=== PATIENT | female | born 1955 | race Caucasian/White ===

== ENCOUNTER 2020-05-29 08:25 | Emergency (ER) | payer OTHER ==
[2020-05-29] MEDS ORDERED: Acetaminophen 325 MG Tab PO ONE (08:45)
--- NOTE | 2020-05-29 08:47 | EDM.PDOC ---
ED HPI GENERAL MEDICAL PROBLEM - General Chief Complaint: Upper Extremity Injury/Pain Stated Complaint: RT WRIST PAIN Time Seen by Provider: 05/29/20 08:32 - History of Present Illness INITIAL COMMENTS - FREE TEXT/NARRATIVE: 65-year-old female presenting with right wrist pain that is been gradually worsening since January 2020. 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 She has been told it was arthritis she was told it could be carpal tunnel as well she has been wearing a wrist brace. She has been doing 2 Aleve twice daily for the symptoms with minimal relief she was referred to orthopedic surgery and was supposed to see them at the end of April but the provider had to cancel those appointments and she has been unable to reschedule at this point. Patient presents today because the pain is severe she is unable to use the right hand. She was trying to lift boxes at work and the pain brought her to her knees and so she presents here. Any motion tends to worsen it however she does experience some minor relief with gentle wrist extension. No fevers no chills no swelling that she is noted. 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 Psychiatric History: Reports: None Endocrine/Metabolic History: Reports: Hypothyroidism Other Endocrine/Metabolic History: Hypothyroidism Other Oncologic History: Cervical Conization Other Dermatologic History: Psoriasis - Infectious Disease History Infectious Disease History: Reports: None - Past Surgical History HEENT Surgical History: Reports: None Other GI Surgeries/Procedures: hx: polypectomy with last colonoscopy, "Mother had Colon cancer" Other Female Surgeries/Procedures: Cervical Conization Social & Family History - Family History Family Medical History: Noncontributory Review of Systems - Review of Systems Review Of Systems: See Below Constitutional: Reports: No Symptoms Respiratory: Reports: No Symptoms Cardiovascular: Reports: No Symptoms GI/Abdominal: Reports: No Symptoms Musculoskeletal: Reports: Other (Per HPI) ED EXAM, GENERAL - Physical Exam Exam: See Below Free Text/Narrative:: General Appearance: No acute distress, appears comfortable Skin: No rash HEENT: Normocephalic/atraumatic, sclera anicteric, mucous membranes moist Neck: Normal range of motion Musculoskeletal: 2+ right radial pulse there is generalized wrist tenderness that is most significant over the scaphoid and the hook of the hamate patient able to range digits but limited by pain unable to tolerate any significant range of motion of the wrist the joint is not swollen there is no clinical joint effusion there is no overlying erythema Psychiatric: Appropriate, cooperative Course - Vital Signs Last Recorded V/S: Last Vital Signs Temp 97.7 F 05/29/20 08:32 Pulse 81 05/29/20 08:32 Resp 16 05/29/20 08:32 BP 133/75 05/29/20 08:32 Pulse Ox 99 05/29/20 08:32 - Orders/Labs/Meds Meds: Medications Discontinued Medications Generic Name Dose Route Start Last Admin Trade Name Clemente PRN Reason Stop Dose Admin Acetaminophen 650 mg 05/29/20 08:45 05/29/20 09:06 Tylenol PO 05/29/20 08:46 650 mg NOW ONE Administration Departure - Departure Time of Disposition: 10:06 Disposition: Home, Self-Care 01 Condition: Good Clinical Impression: Right wrist pain - Discharge Information *PRESCRIPTION DRUG MONITORING PROGRAM REVIEWED*: Not Applicable *COPY OF PRESCRIPTION DRUG MONITORING REPORT IN PATIENT ESTHER: Not Applicable Instructions: Wrist Pain, Adult Referrals: Fabien Levine MD [Primary Care Provider] - Forms: ED Department Discharge, ED Return to Work/School Form Additional Instructions: [facility] [address], [address] [place] [address] For the next 5 days stop taking the Aleve. Instead take 600 mg (3 200 mg ofnh-cax-kepdpsn ibuprofen tablets) every 8 hours with food. Combine this with 2 extra strength Tylenol tablets 3 times a day for a total of 1 g of Tylenol 3 times daily. Do not take any additional Tylenol on top of this. Try to rest for the next 3 days and be sure to follow-up with the orthopedic surgeon and your primary care doctor. The following information is given to patients seen in the emergency department who are being discharged to home. This information is to outline your options for follow-up care. We provide all patients seen in our emergency department with a follow-up referral. The need for follow-up, as well as the timing and circumstances, are variable depending upon the specifics of your emergency department visit. If you don't have a primary care physician on staff, we will provide you with a referral. We always advise you to contact your personal physician following an emergency department visit to inform them of the circumstance of the visit and for follow-up with them and/or the need for any referrals to a consulting specialist. The emergency department will also refer you to a specialist when appropriate. This referral assures that you have the opportunity for follow-up care with a specialist. All of these measure are taken in an effort to provide you with optimal care, which includes your follow-up. Under all circumstances we always encourage you to contact your private physician who remains a resource for coordinating your care. When calling for follow-up care, please make the office aware that this follow-up is from your recent emergency room visit. If for any reason you are refused follow-up, please contact the [facility] Emergency Department at and asked to speak to the emergency department charge nurse. Sepsis Event Note (ED) - Evaluation Sepsis Screening Result: No Definite Risk - Focused Exam Vital Signs: Vital Signs Temp Pulse Resp BP Pulse Ox 05/29/20 08:32 97.7 F 81 16 133/75 99 - Assessment/Plan Assessment:: 65-year-old female presenting with gradually worsening of severe right wrist pain. Extremity is neurovascularly intact there is no swelling or erythema that would suggest gout there is no sign of recent trauma no report of recent trauma but x-ray ordered to exclude initially missed fracture such as scaphoid fracture. No findings of acute arterial occlusion. Severe arthritis is a consideration carpal tunnel is a consideration. The soft tissue injury and tendinitis is a consideration but the duration of symptoms would be atypical for this. Patient has an allergy to codeine and wishes to avoid all narcotics which is reasonable we will add Tylenol as the patient is already taken 2 Aleve today. Patient will need orthopedic surgery follow-up. Patient's x-ray is negative. We will switch her pain control to a combination of ibuprofen and Tylenol patient provided with orthopedic surgery referral as well as a note for work for the next 3 days.
--- NOTE | 2020-05-29 09:58 | CR ---
INDICATION: Severe pain right wrist for the last few months; most tender over the scaphoid and the hamate bone. COMPARISON: Three view study right wrist February 13, 2008. TECHNIQUE: Three views study right wrist. FINDINGS: No evidence of acute fracture or dislocation. Evidence of osteoarthritis involving the articulation between the scaphoid and the trapezium as well as trapezium the 1st metacarpal. Osteoarthritis involving the proximal interphalangeal articulation of the right 5th finger. Impression : 1. Osteoarthritis as described above. 2. No acute fracture or dislocation. Dictated by Patricia Del Angel MD @ May 29 2020 9:52AM Signed by Dr. Patricia Del Angel @ May 29 2020 9:56AM
[2020-05-29 10:16] VITALS: BP 133/67; PULSE 80
== END 2020-05-29 10:16 | disposition home or self-care (01) ==
LOC: MW.ED 08:25
DX: M25.531 Pain in right wrist (principal); E03.9 Hypothyroidism, unspecified; Z88.5 Allergy status to narcotic agent; Z79.899 Other long term (current) drug therapy
CPT/HCPCS: 73110; 99283; A9270; 99282

== ENCOUNTER 2020-10-01 17:08 | Emergency (ER) | payer OTHER ==
[2020-10-01 17:19] VITALS: BP 148/94; PULSE 103
[2020-10-01] MEDS ORDERED: Lidocaine 1% with EPINEPHrine 1:100,000 10 ML MDV INJECT ONE (17:25)
[2020-10-01] MEDS ORDERED: Diphtheria,Pertussis(Acell),Tetanus Vaccine 0.5 ML Syringe IM ONE (17:26)
[2020-10-01] MEDS ORDERED: Lidocaine 1% with EPINEPHrine 1:100,000 20 ML MDV ONE (17:30)
[2020-10-01] MEDS ORDERED: Lidocaine 1% with EPINEPHrine 1:100,000 20 ML MDV INJECT ONE (17:33)
--- NOTE | 2020-10-01 17:51 | EDM.PDOC ---
ED HPI GENERAL MEDICAL PROBLEM - General Chief Complaint: Laceration Stated Complaint: CUT TO RIGHT WRIST Time Seen by Provider: 10/01/20 17:10 - History of Present Illness INITIAL COMMENTS - FREE TEXT/NARRATIVE: CHIEF COMPLAINT(S): Right wrist laceration HISTORY OF PRESENT ILLNESS: This is a 65-year-old woman with a past medical history of recent right wrist surgery who comes to the emergency department with a chief complaint of right wrist laceration. The patient states that she was preparing some food this evening when she reached up above the counter to get some dressing bowls she states that the ball fell broke and cut her wrist. She denies any suicidal ideation or suicide attempt. She states that there was some bleeding. She states that she placed a towel over it and came to the emergency department. She denies any numbness, tingling, weakness. She states that she can move her right hand. She does not know when her last tetanus shot was. She denies any other injuries. REVIEW OF SYSTEMS: CV: Positive for mild bleeding Skin:Positive for laceration to right wrist MSK: Denies joint pain, finger pain, wrist pain Neurological: Denies blurred vision numbness, tingling, weakness PAST MEDICAL HISTORY: As per history of present illness and as reviewed below otherwise noncontributory. SURGICAL HISTORY: As per history of present illness and as reviewed below otherwise noncontributory. SOCIAL HISTORY: As per history of present illness and as reviewed below otherwise noncontributory. FAMILY HISTORY: As per history of present illness and as reviewed below otherwise noncontributory. EXAMINATION OF ORGAN SYSTEMS/BODY AREAS: Constitutional: Blood pressure is 148/94, heart rate 103, respiratory rate 16 with an oxygen saturation 97% on room air. Temperature 36.3 General: Overall well-appearing middle-aged woman who is in no acute distress. Psychiatric: Appropriate mood and affect. Eyes: No scleral icterus or conjunctival erythema Cardiovascular: Regular, rate, and rhythm. No gallops, murmurs, or rubs. Bilateral upper extremity pulses symmetric and intact. No active bleeding from the right wrist Respiratory: Lungs clear to auscultation bilaterally. No wheezes, rales, or rhonchi. Musculoskeletal: Patient has full range of motion of her right fingers with good countersinker balance screw hole strength. There is no tendons or muscle exposed. There is full flexion and extension at the wrist without any abnormality Skin: There is a 3 cm superficial laceration of the right wrist. Neurological: Alert, GCS 15 distal sensation is intact MEDICAL DECISION MAKING AND COURSE IN THE ED WITH INTERPRETATION/REVIEW OF DIAGNOSTIC STUDIES: This is a 65-year-old woman with a recent right wrist surgery who comes to the emergency department with accidental right wrist laceration without any active bleeding who is neurovascularly intact without any tendon or bone exposed. At this time we will do primary suture repair. Patient's tetanus is unknown therefore we will provide her with a tetanus booster. Laceration Repair Note Repair of the 3 cm right wrist wound was done by myself. Wound was irrigated well with saline. Local anesthesia with lidocaine was performed. No foreign bodies were noted. The wound was repaired with 9 40 directed nylon sutures. Wound edges approximated well. Bacitracin ointment and a sterile dressing were applied. After laceration was repaired I did discuss with patient that she would need to have them removed in 7 to 10 days. She is to return for any new worsening symptoms such as redness, warmth, purulent drainage. DISPOSITION: The patient was discharged home in stable condition. The patient will follow up with primary care physician or emergency room in 7 to 10 days for removal of stitches CONDITION: As fair PROCEDURES: Laceration repair FINAL IMPRESSION(S)/DIAGNOSES: 1. Acute right wrist laceration status post suture repair Lm Pierce M.D. 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 Musculoskeletal History: Reports: Arthritis Other Musculoskeletal History: Compressed lower back disks, 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 Psychiatric History: Reports: None Endocrine/Metabolic History: Reports: Hypothyroidism Other Endocrine/Metabolic History: Hypothyroidism Other Oncologic History: Cervical Conization Other Dermatologic History: Psoriasis - Infectious Disease History Infectious Disease History: Reports: None - Past Surgical History HEENT Surgical History: Reports: None Other GI Surgeries/Procedures: hx: polypectomy with last colonoscopy, "Mother had Colon cancer" Other Female Surgeries/Procedures: Cervical Conization Social & Family History - Family History Family Medical History: No Pertinent Family History - Tobacco Use Packs/Tins Daily: 1 - Recreational Drug Use Recreational Drug Use: No ED ROS GENERAL - Review of Systems Review Of Systems: See Below ED EXAM, SKIN/RASH Exam: See Below Course - Vital Signs Last Recorded V/S: Last Vital Signs Temp 36.3 C 10/01/20 17:14 Pulse 103 H 10/01/20 17:14 Resp 16 10/01/20 17:14 BP 148/94 H 10/01/20 17:14 Pulse Ox 97 10/01/20 17:14 - Orders/Labs/Meds Meds: Medications Discontinued Medications Generic Name Dose Route Start Last Admin Trade Name Freq PRN Reason Stop Dose Admin Diphtheria/Tetanus/Acell Pertussis 0.5 ml 10/01/20 17:26 10/01/20 17:46 Boostrix IM 10/01/20 17:27 0.5 ml .ONCE ONE Administration Lidocaine/Epinephrine Confirm 10/01/20 17:30 10/01/20 17:47 Xylocaine 1% With Epinephrine 1:100,000 Administered 10/01/20 17:31 Not Given Dose 20 ml .ROUTE .STK-MED ONE Lidocaine/Epinephrine 20 ml 10/01/20 17:33 10/01/20 17:47 Xylocaine 1% With Epinephrine 1:100,000 INJECT 10/01/20 17:34 20 ml ONETIME ONE Administration Departure - Departure Time of Disposition: 17:50 Disposition: Home, Self-Care 01 Condition: Fair Clinical Impression: Laceration - Discharge Information *PRESCRIPTION DRUG MONITORING PROGRAM REVIEWED*: No *COPY OF PRESCRIPTION DRUG MONITORING REPORT IN PATIENT ESTHER: No Instructions: Laceration Care, Adult, [id number], Pain Medicine Instructions, [id number] Referrals: Fabien Levine MD [Primary Care Provider] - Forms: ED Department Discharge Additional Instructions: Your evaluated today on an emergent basis. We did repair a 3 cm laceration to your right forearm. We placed 9 stitches. Please take [id number] Tylenol and Motrin for pain relief. You will need to have these removed in 7 to 10 days. Please return to the emergency department if you have any redness, pus drainage or any concerns. Please follow-up with your primary care physician. [facility] [address] [place] [address] [facility] [address] [place] [address] The patient is informed of any results of their evaluation and diagnostic workup and all questions are answered. They are given discharge instructions and return precautions. The patient is stable for discharge. The patient states they understand and agree with the plan and that they will return if their symptoms get worse or if they have any new concerns. The following information is given to patients seen in the emergency department who are being discharged to home. This information is to outline your options for follow-up care. We provide all patients seen in our emergency department with a follow-up referral. The need for follow-up, as well as the timing and circumstances, are variable depending upon the specifics of your emergency department visit. If you don't have a primary care physician on staff, we will provide you with a referral. We always advise you to contact your personal physician following an emergency department visit to inform them of the circumstance of the visit and for follow-up with them and/or the need for any referrals to a consulting specialist. The emergency department will also refer you to a specialist when appropriate. This referral assures that you have the opportunity for follow-up care with a specialist. All of these measure are taken in an effort to provide you with optimal care, which includes your follow-up. Under all circumstances we always encourage you to contact your private physician who remains a resource for coordinating your care. When calling for follow-up care, please make the office aware that this follow-up is from your recent emergency room visit. If for any reason you are refused follow-up, please contact the [facility] Emergency Department at and asked to speak to the emergency department charge nurse. Sepsis Event Note (ED) - Evaluation Sepsis Screening Result: No Definite Risk
== END 2020-10-01 17:59 | disposition home or self-care (01) ==
LOC: MW.ED 17:08
DX: S61.511A Laceration without foreign body of right wrist, initial encounter (principal); E03.9 Hypothyroidism, unspecified; Z79.899 Other long term (current) drug therapy; Z88.5 Allergy status to narcotic agent; Z72.0 Tobacco use; W26.8XXA Contact with other sharp object(s), not elsewhere classified, initial encounter
CPT/HCPCS: 12002; 90471; 90715; 99282; 99282-25

== ENCOUNTER 2020-10-11 13:34 | Emergency (ER) | payer OTHER | END 2020-10-11 14:00 | disposition left against medical advice (07) | LOC: MW.ED 13:34 | DX: S61.511D Laceration without foreign body of right wrist, subsequent encounter (principal); X58.XXXD Exposure to other specified factors, subsequent encounter | CPT/HCPCS: 99281 ==